=== PATIENT | female | born 1955 | race Two or more races ===

== ENCOUNTER → 2024-10-06 | Outpatient (CLI) | payer OTHER ==
[~2024-10-06] VITALS: Ht 160 cm; Wt 69.9 kg
[2024-10-06] MEDS: REGADENOSON 0.4 MG/5 ML SYRG IV ONE ×2 (09:55→09:57)
--- NOTE | 2024-10-06 11:28 | DVHSR ---
APPROVED REPORT Exam: Nuclear Stress Test BMI: 0 Stress Test Details HR Max Heart Rate (APMHR): 150 bpm Target HR (85% APMHR): 128 bpm BP ECG Stress ECG Conclusion Review of the myocardial perfusion images demonstrated a small area of mild intensity reduced radiotr acer uptake in the distal anterior wall during stress. This appears to be a reversible during rest. Otherwise, there is homogeneous radiotracer uptake throughout the rest of the left ventricular myoca rdium. Left ventricular volumes are normal. Ejection fraction is normal and is estimated at 72%. T here is no significant transient ischemic dilatation. No gated images are available to assess for wa ll motion. Impression: 1. Small area of mildly reduced radiotracer uptake in the distal anterior wall which could be seconda ry to ischemia versus attenuation artifact. 2. Normal left ventricular systolic function. 3. Overall, the study is low risk. NM EXAM: Myocardial Perfusion REST/STRESS Imaging Protocol: Rest Tc-99m/Stress Tc-99m 1 day Resting Data Rest SPECT myocardial perfusion imaging was performed in supine position 60 minutes following the int ravenous injection of 14.7 mCi of Tc-99m Sestamibi. Time of rest injection: 0805 Time of rest imagin Administration Route: IV Administration Site: Left Hand Pharmacologic Stress Pharmacologic stress test was performed by injecting Regadenoson 0.4 mg IV push followed by the intra venous injection of 30.7 mCi of Tc-99m Sestamibi. Time of stress injection: 0955 Time of stress imagin Administration Route: IV Administration Site: Left Hand Gated Stress SPECT was performed 60 minutes after stress injection. The images were gated to evaluate regional wall motion and calculate left ventricular ejection fracti on. Stress only was performed in the Supine position. Nuclear Conclusion ECG Findings: equivocal Clinical Findings: negative for ischemia Nuclear Findings: equivocal Exercise Capacity: not assessed Left Ventricular Function: normal Risk Study: low Review of the myocardial perfusion images demonstrated a small area of mild intensity reduced radiotr acer uptake in the distal anterior wall during stress. This appears to be a reversible during rest. Otherwise, there is homogeneous radiotracer uptake throughout the rest of the left ventricular myoca rdium. Left ventricular volumes are normal. Ejection fraction is normal and is estimated at 72%. T here is no significant transient ischemic dilatation. No gated images are available to assess for wa ll motion. Impression: 1. Small area of mildly reduced radiotracer uptake in the distal anterior wall which could be seconda ry to ischemia versus attenuation artifact. 2. Normal left ventricular systolic function. 3. Overall, the study is low risk.
== END | disposition home or self-care (01) ==
LOC: XYW 07:23
PROVIDERS: ATTEND Specialist
DX: R00.2 Palpitations (principal); R53.83 Other fatigue; R07.9 Chest pain, unspecified; I10 Essential (primary) hypertension; E11.42 Type 2 diabetes mellitus with diabetic polyneuropathy; E78.2 Mixed hyperlipidemia
CPT/HCPCS: 78452; 93017; A9500; J2785

== ENCOUNTER 2025-02-10 17:15 | Inpatient (IN) | payer MEDICAID, OTHER ==
[~2025-02-10] VITALS: Ht 160 cm; Wt 68.3 kg
[2025-02-10 17:35] VITALS: PULSE 66; RESP 16; O2SAT 94
--- NOTE | 2025-02-10 18:40 | ED.PDOC ---
HPI Comments 69 year old female came to ER due to chest pain. Patient has history of hypertension and diabetes. Was experiencing chest pains with palpitations and shortness of breath earlier today so she went to [facility] for check up. Was noted to be on Afib in Rvr, new onset and diagnostics done revealed elevated troponin levels. 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 Allergies: Coded Allergies: NO KNOWN ALLERGIES (Unverified , 10/06/24) Home Meds Reported Medications Omeprazole (Gnp Omeprazole) 20 Mg Tab, 40 MG PO DAILY, TAB 02/11/25 Phenazopyridine HCl (Phenazopyridine Hydrochol) 200 Mg Tab, 1 TAB PO TID 02/11/25 Nitrofurantoin Monohyd Macro (Nitrofurantoin Monohydrat) 100 Mg Cap, 1 CAP PO 02/11/25 Insulin Aspart (Novolog) 100 Unit/Ml Inj, SC 02/11/25 Gabapentin (Gabapentin) 300 Mg Cap, 1 CAP PO TID 02/11/25 Amlodipine Besylate (Amlodipine Besylate) 5 Mg Tab, 1 TAB PO DAILY 02/11/25 Atorvastatin Calcium (ATORVASTATIN CALCIUM) 80 Mg Tab, 1 TAB PO DAILY 02/11/25 Atorvastatin Calcium (ATORVASTATIN CALCIUM) 20 Mg Tab, 1 TAB PO DAILY 02/11/25 Metoprolol Tartrate (Lopressor) 25 Mg Tb, 1 TAB PO BID 02/11/25 Aspirin (Aspirin Low Dose) 81 Mg Chw, 1 TAB PO DAILY 02/11/25 Metformin Hydrochloride (Metformin Hcl) 500 Mg Tab, 1 TAB PO BID 02/11/25 Information Source: Patient Mode of Arrival: EMS Severity: Moderate Timing: Hours Duration: Intermittent Prehospital treatment: 12 Lead EKG, Accucheck Location: Substernal Radiation: No Radiation Quality: Aching Onset: With Light Exertion Cardiac Risk Factors: HTN, Diabetes PE Risk Factors: None Associated Signs and Symptoms: SOB, Palpitations Past Medical History PAST MEDICAL HISTORY: DM, HTN Surgical History: Denies all surgeries 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: 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 all 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 WELDER Hx Family History Family History: Reviewed,noncontributory to illness Social History Smoker: Non-Smoker Alcohol: Denies ETOH Use Drugs: Denies Drug Use Lives In: Home Constitutional: denies: chills, diaphoresis, fatigue, fever, malaise, sweats, weakness, others EENTM: denies: blurred vision, double vision, ear bleeding, ear discharge, ear drainage, ear pain, ear ringing, eye pain, eye redness, hearing loss, mouth pain, mouth swelling, nasal discharge, nose bleeding, nose congestion, nose pain, photophobia, tearing, throat pain, throat swelling, voice changes, others Respiratory: reports: shortness of breath; denies: cough, hemoptysis, orthopnea, SOB at rest, SOB with excertion, stridor, wheezing, others Cardiovascular: reports: chest pain, palpitations; denies: dizzy spells, diaphoresis, Dyspnea on exertion, edema, irregular heart beat, left arm pain, lightheadedness, PND, syncope, others Gastrointestinal: denies: abdomen distended, abdominal pain, blood streaked bowels, constipated, diarrhea, dysphagia, difficulty swallowing, hematemesis, melena, nausea, poor appetite, poor fluid intake, rectal bleeding, rectal pain, vomiting, others Genitourinary: denies: abnormal vagina bleeding, burning, dyspareunia, dysuria, flank pain, frequency, hematuria, incontinence, pain, , vagina discharge, urgency, others Neurological: denies: dizziness, fainting, headache, left sided numbness, left sided weakness, numbness, paresthesia, pre-existing deficit, right sided numbness, right sided weakness, seizure, speech problems, tingling, tremors, weakness, others Musculoskeletal: denies: back pain, gout, joint pain, joint swelling, muscle pain, muscle stiffness, neck pain, others Integumetry: denies: bruises, change in color, change in hair/nails, dryness, laceration, lesions, lumps, rash, wounds, others Allergic/Immunocompromised: denies: Difficulty Healing, Frequent Infections, Hives, Itching, others Hematologic/Lymphatic: denies: anemia, blood clots, easy bleeding, easy bruising, swollen glands, others Endocrine: denies: excessive hunger, excessive sweating, excessive thirst, excessive urination, flushing, intolerance to cold, intolerance to heat, unexplained weight gain, unexplained weight loss, others Psychiatric: denies: anxiety, bipolar disorder, depression, hopeless, panic disorder, schizophrenia, sleepless, suicidal, others Physical Exam General Appearance: No Apparent Distress, Normal HEENT: Normal ENT Inspection, Pharynx Normal, TMs Normal Neck: Full Range of Motion, Non-Tender, Normal, Normal Inspection Respiratory: Chest Non-Tender, Lungs Clear, No Accessory Muscle Use, No Respiratory Distress, Normal Breath Sounds Cardiovascular: No Edema, No JVD, No Murmur, No Gallop, Normal Peripheral Pulses, Regular Rate/Rhythm Breast Exam: Deferred Gastrointestinal: No Organomegaly, Non Tender, No Pulsatile Mass, Normal Bowel Sounds, Soft Genitalia: Deferred Pelvic: Deferred Rectal: Deferred Extremities: No calf tenderness, Normal capillary refill, Normal inspection, Normal range of motion, Non-tender, No pedal edema Musculoskeletal : Apperance: Normal Neurologic: Alert, 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 Was a procedure done?: No CP Differential Dx Differential Diagnosis: A-fib, Angina, Anxiety / Panic Attack Differential Diagnosis: Angina, Chest Wall Pain, Costochondritis, Esophageal reflux/spasm, Gastritis, Myocardial Infarction, Pneumonia X-Ray, Labs, Meds, VS Vital Signs Date Time Temp Pulse Resp B/P (MAP) Pulse Ox O2 Delivery O2 Flow Rate FiO2 02/11/25 01:00 57 12 118/40 (66) 95 02/11/25 01:00 57 13 118/40 (66) 94 02/11/25 00:00 65 02/11/25 00:00 66 13 128/54 (78) 92 02/10/25 23:00 57 12 124/40 (68) 95 02/10/25 23:00 57 12 124/40 (68) 95 02/10/25 22:00 61 15 110/39 (62) 95 02/10/25 21:12 62 17 117/41 (66) 95 02/10/25 21:00 62 17 117/41 (66) 95 02/10/25 20:00 61 16 114/40 (64) 94 02/10/25 19:30 97.9 60 17 92/44 (60) 96 97.9 02/10/25 19:29 64 02/10/25 18:40 65 02/10/25 18:13 66 02/10/25 17:35 97.8 67 18 117/51 (73) 94 97.8 02/10/25 17:35 66 16 94 Room Air* 0 21 02/10/25 17:32 72 16 98 02/10/25 17:22 65 Lab Test 02/10/25 21:32 02/10/25 19:40 02/10/25 18:34 Range/Units Troponin I High Sensitivity 15529 *H 98863 *H 16335 *H </=34 ng/L White Blood Count 8.0 4.4-10.8 10^3/uL Red Blood Count 4.30 4.0-5.20 10^6/uL Hemoglobin 12.5 12.2-16.2 g/dL Hematocrit 37.4 36.0-46.0 % Mean Corpuscular Volume 87.0 80.0-100.0 fL Mean Corpuscular Hemoglobin 29.2 28.0-32.0 pg Mean Corpuscular Hemoglobin Concent 33.5 32.0-36.0 g/dL Red Cell Distribution Width 13.1 11.8-14.3 % Platelet Count 210 140-450 10^3/uL Mean Platelet Volume 9.5 6.9-10.8 fL Neutrophils (%) (Auto) 56.4 37.0-80.0 % Lymphocytes (%) (Auto) 33.5 10.0-50.0 % Monocytes (%) (Auto) 8.0 0.0-12.0 % Eosinophils (%) (Auto) 1.5 0.0-7.0 % Basophils (%) (Auto) 0.6 0.0-2.0 % Neutrophils # (Auto) 4.5 1.6-8.6 10 ^3/uL Lymphocytes # (Auto) 2.7 0.4-5.4 10 ^3/uL Monocytes # (Auto) 0.6 0-1.3 10 ^3/uL Eosinophils # (Auto) 0.1 0-0.8 10 ^3/uL Basophils # (Auto) 0.1 0-0.2 10 ^3/uL Nucleated Red Blood Cells 0.1 % Prothrombin Time 10.7 9.3-11.8 sec Prothrombin Time INR 1.01 0.9-1.15 Activated Partial Thromboplast Time 31.9 24.5-34.5 SEC Sodium Level 143 136-145 mmol/L Potassium Level 4.1 3.5-5.1 mmol/L Chloride Level 111 H 98-107 mmol/L Carbon Dioxide Level 27 20-31 mmol/L Anion Gap 5 5-15 Blood Urea Nitrogen 14 9-23 mg/dL Creatinine 0.86 0.550-1.02 mg/dL Glomerular Filtration Rate Calc 73 >90 mL/min BUN/Creatinine Ratio 16.3 10.0-20.0 Serum Glucose 71 L 74-106 mg/dL Calcium Level 9.6 8.7-10.4 mg/dL B-Type Natriuretic Peptide 101.76 0-100 pg/mL CHEST RADIOGRAPH Indication: chest pain Technique: Single frontal view of the chest was obtained Comparison: None FINDINGS: Lines and Tubes: None Lungs: No focal consolidation. Pleura: No effusion. No pneumothorax. Cardiomediastinal contours: Unremarkable Bones: No acute osseous abnormality. IMPRESSION: 1. No acute cardiopulmonary disease. Time of 1ST Reevaluation: 18:36 Reevaluation 1ST: Unchanged Patient Education/Counseling: Diagnosis, Treatment Family Education/Counseling: No Family Present Departure 1 Departure Time of Disposition: 05:31 (Patient presented with chest pain that was concerning for possible STEMI, ACS, PE, Pneumonia, Muscle Strain, COPD, Dissection. Data: 1. I ordered and reviewed the result of at least 3 labs inc luding a CBC, BMP, and Troponin. 2. I independently interpreted the following tests: EKG which shows sinus arrhythmia and Chest X-ray which shows benign chest.Risk:This patient has a high risk of morbidity due to further diagnostic testing or treatment and may suffer from an acute cardiac or respiratory disorder. Workup reveals concern for ACS and patient should be admitted for fur ther workup and possible expert consultation. ) Impression: Primary Impression: Acute chest pain Disposition: 09 ADMITTED INPATIENT Admit to: Med Surg Condition: Serious Critical Care Note Critical Care Time?: Yes (35 min-critical care time only) Critical care comment: chest pains. [email or web address] Authorized and Performed by: Hamida Cross MD Total critical care time: Approximately 44 minutes Due to a high probability of clinically significant, life threatening deterioration, the patient required my highest level of preparedness to intervene emergently and I personally spent this critical care time directly and personally managing the patient. This critical care time included obtaining a history; examining the patient; pulse oximetry; ordering and review of studies; arranging urgent treatment with development of a management plan; evaluation of patient's response to treatment; frequent reassessment; and, discussions with other providers. This critical care time was performed to assess and manage the high probability of imminent, life-threatening deterioration that could result in multi-organ failure. It was exclusive of separately billable procedures and treating other patients and teaching time. Please see my other sections and the rest of the note for further information on patient assessment and treatment. Stability Stability form required: No Heart Score Heart Score: Heart Score Response (Comments) Value History Moderate Suspicious 1 EKG Normal 0 Age >65 2 Risk Factors >3 or Hx ASHD 2 Troponin >3 x's Normal limit 2 Total 7 I personally scribed for HAMIDA CROSS MD ([employer]) on 02/10/25 at 18:40. Electronically submitted by Humberto Lugo ([employer]). I personally scribed for HAMIDA CROSS MD ([facility]) on 02/10/25 at 19:48. Elect ronically submitted by Humberto Lugo ([employer]). HAMIDA CROSS MD February 10, 2025 18:40
[2025-02-10 18:49] LABS: Basophils # (auto) 0.1 10 ^3/uL (0-0.2); Basophils % (auto) 0.6 % (0.0-2.0); Eosinophils # (auto) 0.1 10 ^3/uL (0-0.8); Eosinophils % (auto) 1.5 % (0.0-7.0); Hematocrit 37.4 % (36.0-46.0); Hemoglobin 12.5 g/dL (12.2-16.2); Lymphocytes # (auto) 2.7 10 ^3/uL (0.4-5.4); Lymphocytes % (auto) 33.5 % (10.0-50.0); Mean Corpuscular Hemoglobin 29.2 pg (28.0-32.0); Mean Corpuscular Hgb Conc. 33.5 g/dL (32.0-36.0); Monocytes # (auto) 0.6 10 ^3/uL (0-1.3); Neutrophils # (auto) 4.5 10 ^3/uL (1.6-8.6); Neutrophils % (auto) 56.4 % (37.0-80.0); Nucleated Red Blood Cells % 0.1 %; Platelet Count (auto) 210 10^3/uL (140-450); Red Cell Distribution Width 13.1 % (11.8-14.3)
--- NOTE | 2025-02-10 18:54 | DVH ---
CHEST RADIOGRAPH Indication: chest pain Technique: Single frontal view of the chest was obtained Comparison: None FINDINGS: Lines and Tubes: None Lungs: No focal consolidation. Pleura: No effusion. No pneumothorax. Cardiomediastinal contours: Unremarkable Bones: No acute osseous abnormality. IMPRESSION: 1. No acute cardiopulmonary disease.
--- NOTE | 2025-02-10 18:59 | ECG ---
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
--- NOTE | 2025-02-10 18:59 | ECG ---
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
[2025-02-10 19:05] LABS: Potassium 4.1 mmol/L (3.5-5.1); Sodium 143 mmol/L (136-145)
[2025-02-10 19:06] LABS: Anion Gap 5 (5-15); Carbon Dioxide 27 mmol/L (20-31)
[2025-02-10 19:07] LABS: Calcium 9.6 mg/dL (8.7-10.4)
[2025-02-10 19:08] LABS: Chloride 111 mmol/L (98-107)
[2025-02-10 19:12] LABS: BUN/Creatinine Ratio 16.3 (10.0-20.0); Blood Urea Nitrogen 14 mg/dL (9-23); Glucose 71 mg/dL (74-106)
[2025-02-10 20:00] VITALS: BP 114/40; PULSE 61; RESP 16; O2SAT 94
[2025-02-10 20:50] LABS: INR 1.01 (0.9-1.15); Partial Thromboplastin Time 31.9 SEC (24.5-34.5); Prothrombin Time 10.7 sec (9.3-11.8)
[2025-02-10] MEDS: HEPARIN SODIUM (PORCINE) 5000 UNITS/ML 1ML VIAL IV ONE (20:50)
[2025-02-10 21:00] VITALS: BP 117/41; PULSE 62; RESP 17; O2SAT 95
[2025-02-10] MEDS: HEPARIN DRIP/D5W 100UNITS/ML 250 ML IV SCH (21:13)
[2025-02-10 22:00] VITALS: BP 110/39; PULSE 61; RESP 15; O2SAT 95
[2025-02-10 23:00] VITALS: BP 124/40; PULSE 57; RESP 12; O2SAT 95
[2025-02-11] VITALS (13 sets, daily range): BP systolic 118–145; BP diastolic 40–76; PULSE 55–81; RESP 12–18; TEMP 96.9–98.4; O2SAT 92–98
[2025-02-11] MEDS ORDERED: HYDROcodone-ACET 5/325MG TAB PO PRN (01:15)
[2025-02-11] MEDS ORDERED: ONDANSETRON HCL 4 MG/2 ML VIAL IV PRN (01:15)
[2025-02-11] MEDS ORDERED: MORPHINE SULFATE INJ 2 MG/ml SYRG IV PRN ×2 (01:15)
[2025-02-11] MEDS ORDERED: ACETAMINOPHEN 325 MG TAB PO PRN (01:15)
[2025-02-11] MEDS ORDERED: DOCUSATE SOD 100 MG CAP PO PRN (01:15)
[2025-02-11] MEDS ORDERED: NITROGLYCERIN 0.4 MG SL TAB SL PRN (01:15)
[2025-02-11 03:23] LABS: INR 0.99 (0.9-1.15); Partial Thromboplastin Time 30.5 SEC (24.5-34.5); Prothrombin Time 10.5 sec (9.3-11.8)
[2025-02-11] MEDS: HEPARIN SODIUM (PORCINE) 5000 UNITS/ML 1ML VIAL IV ONE ×2 (03:45→13:48)
[2025-02-11] MEDS ORDERED: HEPARIN DRIP/D5W 100UNITS/ML 250 ML IV SCH (03:45)
[2025-02-11] MEDS: HEPARIN DRIP/D5W 100UNITS/ML 250 ML IV SCH ×2 (04:18→20:50)
--- NOTE | 2025-02-11 05:56 | DVHINCON2 ---
Date of service: Feb 11, 2025 Referring Physician Bisi Mcpherson NP Reason for Consultation NSTEMI History of Present Illness This is a 69-year old female known outside to our practice who had initially presented to [facility] 02/10/2025 with reported chest discomfort (now resolved), shortness of breath, and palpitations. ED events from [facility] were reviewed which records indicate initial 12-lead electrocardiogram had revealed atrial fibrillation with a ventricular rate of 145 bpm, with evidence for ST depression predominately involving the septal, anterior, and lateral leads without evidence for ST segment elevation which patient was reportedly administered one dose of IV Lopressor resulting and had later converted to sinus rhythm. Initial troponin at that time had been found normal at 0.02 however repeat level had risen to 2.44 for which patient was subsequently initiated on therapeutic Lovenox and transferred to this facility for further evaluation to undergo ischemic workup. During present course of admi ssion, serial EKG's have been found consistent with sinus rhythm with no further evidence for previously observed ST depression, nor evidence for ST segment elevation. Initial HS troponin level was found elevated at 15,359, with a subsequent trend of 16,904, which had peaked at 17,105 with a downtrend of 8207 consistent with NSTEMI for which the patient had been initiated on Heparin infusion. Subsequent CTA of the Chest had ruled out pulmonary embolism, aneurysm, and dissection. BNP level was found to be 101.76 which chest imaging had revealed no evidence for acute cardiopulmonary abnormalities. LDL was found sub-optimal at 130. Of note, previous Cardiolite Stress Test ([facility] 10/06/2024) had revealed a small area of mildly reduced radiotracer uptake in the distal anterior wall questioned to be ischemia versus attenuation, overall reported to be a low-risk study which subsequent CTA of the Coronaries had been requested for further evaluation however had not been completed by the patient. Echocardiogram (out-patient 11/07/2024) had revealed a preserved LVEF of 60-65%. At present, patient herself denies any active chest pain. Denies any further shortness of breath or palpitations. Denies any further cardiac related symptoms. As the patient presented with NSTEMI, Cardiology services were involved by primary team request for cardiac aspects of care. Past Medical History Past medical history includes diabetes mellitus II, hypertension, hyperlipidemia, neuropathy, status post hysterectomy and bilateral oophorectomy Cardiolite Stress Test: (10/06/2024) revealed Small area of mildly reduced radiotracer uptake in the distal anterior wall which could be secondary to ischemia versus attenuation artifact. Normal left ventricular systolic function. Overall, the study is low risk. Echocardiogram: (Out-patient 11/07/2024) revealed a preserved LVEF of 60-65%, mild concentric LVH, mild left atrial dilation, mild MR, thickened MV with nodular degeneration, mild MAC, trace/mild FL, mild AR, mildly thickened AV, mild TR, with an RVSP of < 35mmHg Past Surgical History Reviewed Family History: Diabetes mellitus G8 MOTHER Hypertension G8 MOTHER Allergies: Coded Allergies: NO KNOWN ALLERGIES (Unverified , 10/06/24) Current Medications Current Medications Medications (Trade) Dose Ordered Sig/Mary Route PRN Reason Start Time Stop Time Status Last Admin Heparin Sodium/ Dextrose 250 ml @ 8.328 mls/ hr Q24H IV 02/10/25 20:30 02/11/25 03:44 DC 02/10/25 21:13 Acetaminophen (Tylenol Tablet) 325 mg Q4HP PRN PO MILD PAIN (1-3 PAIN SCALE) 02/11/25 01:15 Acetaminophen/ Hydrocodone Bitart ([place] 5/325MG Tab) 1 tab Q4HP PRN PO MODERATE PAIN (4-6 PAIN SCALE) 02/11/25 01:15 Ondansetron HCl (Zofran) 4 mg Q4HP PRN IV NAUSEA / VOMITING 02/11/25 01:15 Docusate Sodium (Colace Capsule) 100 mg BIDPRN PRN PO FOR CONSTIPATION 02/11/25 01:15 Morphine Sulfate 2 mg Q4HPRN PRN IV SEVERE PAIN (7-10 PAIN SCALE) 02/11/25 01:15 Nitroglycerin (Ntrostat Sublingual) 0.4 mg Q5MINP PRN SL FOR CHEST PAIN 02/11/25 01:15 Morphine Sulfate 2 mg Q30M PRN IV FOR CHEST PAIN 02/11/25 01:15 Heparin Sodium/ Dextrose 250 ml @ 11 mls/hr [id number] IV 02/11/25 03:45 02/11/25 04:12 DC Heparin Sodium/ Dextrose 250 ml @ 15 mls/hr [id number] IV 02/11/25 04:15 02/11/25 04:18 Review of Systems A 14-point review of systems is negative unless otherwise noted above Vital Signs Vital Signs Date Time Temp Pulse Resp B/P (MAP) Pulse Ox O2 Delivery O2 Flow Rate FiO2 02/11/25 05:00 96.9 60 16 126/64 (84) 98 96.9 02/11/25 04:34 Room Air* 0 21 Physical Exam Heart: S1 and S2 regular. The patient is in sinus rhythm. Lungs: Clear to auscultation Abdomen: Benign. Extremities: Distal pulses palpable, 2+. No evidence for peripheral edema Labs/Diagnostic Data Labs Test 02/11/25 02:58 02/10/25 21:32 02/10/25 18:34 Range/Units Prothrombin Time 10.5 9.3-11.8 sec Prothrombin Time INR 0.99 0.9-1.15 Activated Partial Thromboplast Time 30.5 24.5-34.5 SEC Troponin I High Sensitivity 43673 *H </=34 ng/L White Blood Count 8.0 4.4-10.8 10^3/uL Red Blood Count 4.30 4.0-5.20 10^6/uL Hemoglobin 12.5 12.2-16.2 g/dL Hematocrit 37.4 36.0-46.0 % Mean Corpuscular Volume 87.0 80.0-100.0 fL Mean Corpuscular Hemoglobin 29.2 28.0-32.0 pg Mean Corpuscular Hemoglobin Concent 33.5 32.0-36.0 g/dL Red Cell Distribution Width 13.1 11.8-14.3 % Platelet Count 210 140-450 10^3/uL Mean Platelet Volume 9.5 6.9-10.8 fL Neutrophils (%) (Auto) 56.4 37.0-80.0 % Lymphocytes (%) (Auto) 33.5 10.0-50.0 % Monocytes (%) (Auto) 8.0 0.0-12.0 % Eosinophils (%) (Auto) 1.5 0.0-7.0 % Basophils (%) (Auto) 0.6 0.0-2.0 % Neutrophils # (Auto) 4.5 1.6-8.6 10 ^3/uL Lymphocytes # (Auto) 2.7 0.4-5.4 10 ^3/uL Monocytes # (Auto) 0.6 0-1.3 10 ^3/uL Eosinophils # (Auto) 0.1 0-0.8 10 ^3/uL Basophils # (Auto) 0.1 0-0.2 10 ^3/uL Nucleated Red Blood Cells 0.1 % Sodium Level 143 136-145 mmol/L Potassium Level 4.1 3.5-5.1 mmol/L Chloride Level 111 H 98-107 mmol/L Carbon Dioxide Level 27 20-31 mmol/L Anion Gap 5 5-15 Blood Urea Nitrogen 14 9-23 mg/dL Creatinine 0.86 0.550-1.02 mg/dL Glomerular Filtration Rate Calc 73 >90 mL/min BUN/Creatinine Ratio 16.3 10.0-20.0 Serum Glucose 71 L 74-106 mg/dL Calcium Level 9.6 8.7-10.4 mg/dL B-Type Natriuretic Peptide 101.76 0-100 pg/mL Plan/Recommendation ASSESSMENT: This is a 69-year old female known outside to our practice who had initially presented to [facility] 02/10/2025 with reported chest discomfort (now resolved), shortness of breath, and palpitations. ED events from [facility] were reviewed which records indicate initial 12-lead el ectrocardiogram had revealed atrial fibrillation with a ventricular rate of 145 bpm, with evidence for ST depression predominately involving the septal, anterior, and lateral leads without evidence for ST segment elevation which patient was reportedly administered one dose of IV Lopressor resulting and had later converted to sinus rhythm. Initial troponin at that time had been found normal at 0.02 however repeat level had risen to 2.44 for which patient was subsequently initiated on therapeutic Lovenox and transferred to this facility for further evaluation to undergo ischemic workup. During present course of admission, serial EKG's have been found consistent with sinus rhythm with no further evidence for previously observed ST depression, nor evidence for ST segment elevation. Initial HS troponin level was found elevated at 15,359, with a subsequent trend of 16,904, which had peaked at 17,105 with a downtrend of 8207 consistent with NSTEMI for which the patient had been initiated on Heparin infusion. Subsequent CTA of the Chest had ruled out pulmonary embolism, aneurysm, and dissection. BNP level was found to be 101.76 which chest imaging had revealed no evidence for acute cardiopulmonary abnormalities. LDL was found sub-optimal at 130. Of note, previous Cardiolite Stress Test ([facility] 10/06/2024) had revealed a small area of mildly reduced radiotracer uptake in the distal anterior wall questioned to be ischemia versus attenuation, overall reported to be a low-risk study which subsequent CTA of the Coronaries had been requested for further evaluation however had not been completed by the patient. Echocardiogram (out-patient 11/07/2024) had revealed a preserved LVEF of 60-65%. At present, patient herself denies any active chest pain. Denies any further shortness of breath or palpitations. Denies any further cardiac related symptoms. As the patient presented with NSTEMI, Cardiology services were involved by primary team request for cardiac aspects of care. Past medical history includes diabetes mellitus II, hypertension, hyperlipidemia, neuropathy, status post hysterectomy and bilateral oophorectomy Cardiolite Stress Test: (10/06/2024) revealed Small area of mildly reduced radiotracer uptake in the distal anterior wall which could be secondary to ischemia versus attenuation artifact. Normal left ventricular systolic function. Overall, the study is low risk. Echocardiogram: (out-patient 11/07/2024) revealed a preserved LVEF of 60-65%, mild concentric LVH, mild left atrial dilation, mild MR, thickened MV with nodular degeneration, mild MAC, trace/mild FL, mild AR, mildly thickened AV, mild TR, with an RVSP of < 35mmHg NSTEMI (HS Troponins 15,359 - 16,904 - 17,105 - 8207), rule out obstructive coronary artery disease Paroxysmal atrial fibrillation (new onset), currently sinus rhythm Coronary artery calcification as per CTA Chest findings Mediastinal lymphadenopathy 1.4 cm left thyroid nodule Hyperlipidemia, LDL of 130 Hypertension, controlled Diabetes mellitus II CARDIAC SUGGESTIONS FOR MANAGEMENT: Request for 2D Echocardiogram Request for thyroid function test Plan for tentative [facility] Wednesday02/12/25 at 0800 to assess for obstructive coronary artery disease Benefits, risks, and alternatives were discussed at length which the patient is agreeable to the plan of care Recognizing co-morbidities, CHADSVASc score 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 in the setting of PAF is advised To proceed with Heparin infusion for now, plan to transition to DOAC upon discharge for continued anticoagulation To proceed with optimized medical therapy and risk factor modification during the interim Low-dose Metoprolol Succinate 12.5mg daily with parameters (for now) Low-dose Amiodarone 200mg qhs with parameters (for now) Atorvastatin 40mg once daily Aspirin 81mg daily (for now) Proceed with close rate and rhythm surveillance Proceed with close hemodynamic surveillance Proceed with optimized blood pressure control Transfuse to sustain HGB level above 7.0 Sustain Magnesium level greater than 2.0 Sustain Potassium level greater than 4.0 Follow up renal function and electrolytes Evaluation/management of mediastinal lymphadenopathy as per primary team Evaluation/management of 1.4cm left thyroid nodule as per primary team Management of co-morbidities as per primary team Management in telemetry Will proceed to follow from a cardiac perspective Further recommendations per clinical progression All available diagnostic labs, EKG's, and images were personally reviewed Patient's status, findings, and plan of care was reviewed and discussed with supervising physician Dr. Jones, who is in agreement with current plan of care. Plan of care discussed with and agreed upon by patient / primary RN Prognosis: Guarded Thank you for allowing me to participate in the care of this patient. Further recommendations based on patients clinical course and progression, primary attending, and other consultants. Will continue to follow with primary attending. If you have any questions or concerns, please do not hesitate to contact me. A total of 75 minutes was spent reviewing the patient record, examining the patient, making a diagnostic and therapeutic plan, discussing this plan with medical personnel, following up on diagnostic studies and following the patient for clinical stability excluding any and all procedures. At least 50% of this time was spent in direct, [id number] contact. Plan discussed with: Patient (Patient and Primary RN ) MAGED GERMAIN Feb 11, 2025 05:56
[2025-02-11 06:18] LABS: Triglycerides 119 mg/dL (< 150)
[2025-02-11 06:20] LABS: Cholesterol 206 mg/dL (< 200); HDL Cholesterol 59 mg/dL (40-59); LDL Cholesterol 130 mg/dL (< 100)
--- NOTE | 2025-02-11 06:46 | ECG ---
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
[2025-02-11] MEDS: IOHEXOL 350 MG/ML 100ML IJ ONE (08:20)
--- NOTE | 2025-02-11 08:58 | [facility]H ---
Indication: r/o pe Technique: CT axial images of the chest are obtained with intravenous contrast per CT angiogram prot ocol. Coronal and sagittal reformats were obtained. Radiation Dose Information: CTDI volume is 38.48 mGy. Dose-length product is 699.34 mGy*cm Comparison: None FINDINGS: No filling defects in the main left right pulmonary arteries. Segmental and subsegmental branches sub optimally characterized, no definitive defect identified. Trachea patent. No pneumothorax. Bilateral atelectasis. No pulmonary airspace consolidation. Heart normal in size. Coronary artery calcification disease. Aortic atherosclerotic disease. Subcari nal lymph node measuring 13 mm. Pretracheal lymph node measuring 6 mm. No supraclavicular, axillary lymphadenopathy. Left thyroid nodule measuring 1.4 cm. Thyroid calcific ations. IMPRESSION: 1. No evidence for large pulmonary embolism. 2. Mediastinal lymphadenopathy which can be secondary to infectious, inflammatory, neoplastic etiolog ies. 3. Coronary artery calcification disease. 4. There is a 1.4 cm left thyroid nodule. Recommend thyroid ultrasound in the nonemergent setting fo r further characterization. 5. Other findings as described.
[2025-02-11] MEDS: ASPirin 81 mg TAB PO SCH (10:00)
[2025-02-11 10:22] LABS: INR 0.99 (0.9-1.15); Partial Thromboplastin Time 28.9 SEC (24.5-34.5); Prothrombin Time 10.5 sec (9.3-11.8)
--- NOTE | 2025-02-11 13:40 | CONS ---
Pharmacy Clinical Information: aPTT drawn at 1001 = 28.9 RN checked pump and found previous RN had set pump at 15 units/hr instead of 1500 units/hr = 15 mL/hr Ordered 5000 units IV bolus; RN adjusted pump to 1500 units/hr Next aPTT draw scheduled for 1900 per rx protocol FAY HINOJOSA PHARMACIST Feb 11, 2025 13:40
--- NOTE | 2025-02-11 14:33 | DVHHP2 ---
Admitting Diagnosis: Chest Pain History of Present Illness Patient is a 69-year-old female coming in for chest pain. Patient states that she was experiencing chest pain and palpitations and shortness of breath earlier today. Patient was found to have A-fib with RVR in the emergency department at [facility]. Patient states that she does have a history of hypertension and diabetes. While in the emergency department the patient was evaluated by the provider, As per provider: Labs, vital signs, and imagining monitored. Patient will be admitted for further evaluation and treatment. I discussed admission with the patient/family and is in agreement to treatment plan Patient Family History: Diabetes mellitus G8 MOTHER Hypertension G8 MOTHER Allergies: Coded Allergies: NO KNOWN ALLERGIES (Unverified , 10/06/24) Home Meds Reported Medications Omeprazole (Gnp Omeprazole) 20 Mg Tab, 40 MG PO DAILY, TAB 02/11/25 Phenazopyridine HCl (Phenazopyridine Hydrochol) 200 Mg Tab, 1 TAB PO TID 02/11/25 Nitrofurantoin Monohyd Macro (Nitrofurantoin Monohydrat) 100 Mg Cap, 1 CAP PO 02/11/25 Insulin Aspart (Novolog) 100 Unit/Ml Inj, SC 02/11/25 Gabapentin (Gabapentin) 300 Mg Cap, 1 CAP PO TID 02/11/25 Amlodipine Besylate (Amlodipine Besylate) 5 Mg Tab, 1 TAB PO DAILY 02/11/25 Atorvastatin Calcium (ATORVASTATIN CALCIUM) 80 Mg Tab, 1 TAB PO DAILY 02/11/25 Atorvastatin Calcium (ATORVASTATIN CALCIUM) 20 Mg Tab, 1 TAB PO DAILY 02/11/25 Metoprolol Tartrate (Lopressor) 25 Mg Tb, 1 TAB PO BID 02/11/25 Aspirin (Aspirin Low Dose) 81 Mg Chw, 1 TAB PO DAILY 02/11/25 Metformin Hydrochloride (Metformin Hcl) 500 Mg Tab, 1 TAB PO BID 02/11/25 Current Medications Current Medications Medications (Trade) Dose Ordered Sig/Mary Route PRN Reason Start Time Stop Time Status Last Admin Heparin Sodium/ Dextrose 250 ml @ 8.328 mls/ hr Q24H IV 02/10/25 20:30 02/11/25 03:44 DC 02/10/25 21:13 Acetaminophen (Tylenol Tablet) 325 mg Q4HP PRN PO MILD PAIN (1-3 PAIN SCALE) 02/11/25 01:15 Acetaminophen/ Hydrocodone Bitart ([place] 5/325MG Tab) 1 tab Q4HP PRN PO MODERATE PAIN (4-6 PAIN SCALE) 02/11/25 01:15 Ondansetron HCl (Zofran) 4 mg Q4HP PRN IV NAUSEA / VOMITING 02/11/25 01:15 Docusate Sodium (Colace Capsule) 100 mg BIDPRN PRN PO FOR CONSTIPATION 02/11/25 01:15 Morphine Sulfate 2 mg Q4HPRN PRN IV SEVERE PAIN (7-10 PAIN SCALE) 02/11/25 01:15 Cancel Nitroglycerin (Ntrostat Sublingual) 0.4 mg Q5MINP PRN SL FOR CHEST PAIN 02/11/25 01:15 Morphine Sulfate 2 mg Q30M PRN IV FOR CHEST PAIN 02/11/25 01:15 Cancel Heparin Sodium/ Dextrose 250 ml @ 11 mls/hr [id number] IV 02/11/25 03:45 02/11/25 04:12 DC Heparin Sodium/ Dextrose 250 ml @ 15 mls/hr [id number] IV 02/11/25 04:15 02/11/25 13:51 Atorvastatin Calcium (Lipitor) 40 mg HS PO 02/11/25 22:00 Aspirin 81 mg DAILY PO 02/11/25 10:00 02/11/25 10:00 Amiodarone HCl (Cordarone Tablet) 200 mg HS PO 02/11/25 22:00 Metoprolol Succinate (Toprol Xl) 12.5 mg DAILY PO 02/12/25 10:00 Pantoprazole Sodium (Protonix Tablet) 40 mg DAILY@0600 PO 02/12/25 06:00 Morphine Sulfate 2 mg Q4HPRN PRN IV SEVERE PAIN (7-10 PAIN SCALE) 02/11/25 14:45 Morphine Sulfate 2 mg Q30M PRN IV for chest pain 02/11/25 14:45 Review of Systems Constitutional: denies chills, denies fever, denies malaise Eyes: denies eye pain, denies vision change ENT: denies ear pain, denies headache, denies nasal congestion, denies painful swallowing, denies voice change Cardiovascular: denies edema, denies orthopnea, denies paroxysmal nocturnal dyspnea Respiratory: denies cough, Gastrointestinal: denies constipation, denies diarrhea, denies nausea, denies vomiting Genitourinary: denies dysuria, denies frequent urination, denies urethral discharge Musculoskeletal: back pain, denies joint pain, denies muscle pain Skin: denies bruising, denies itching, denies rash Neurological: denies focal weakness, denies headache, denies sensory changes Psychiatric: denies anxiety, denies depression Endocrine: denies polydipsia, denies polyuria Hematologic/Lymphatic: denies easy bleeding, denies easy bruising, denies enlarged lymph nodes Allergic/Immunologic: denies allergy, denies hives Vital Signs Vital Signs Date Time Temp Pulse Resp B/P (MAP) Pulse Ox O2 Delivery O2 Flow Rate FiO2 02/11/25 17:00 98.1 81 16 145/76 (99) 98 98.1 02/11/25 04:34 Room Air* 0 21 Physical Exam General Appearance: alert, no distress HEENT: EOMI, PERRLA, normal external inspect of ears, no icterus, no nasal drainage Neck: no carotid bruit, no jugular venous distention (JVD), no lymphadenopathy Chest: normal thorax Respiratory: clear to auscultation, normal air movement Cardiovascular: regular rate and rhythm, no diastolic murmur, no jugular venous distention (JVD), no rub, no systolic murmur Abdominal: soft, no hepatomegaly, no mass, no splenomegaly, no tenderness Genitourinary: grossly normal external Musculoskeletal: no joint tenderness, no swelling Extremities: normal pulses, no calf tenderness, no clubbing, no cyanosis, no edema Skin: no bruising, no jaundice, no rash Neurological: alert, No focal deficit Results Labs Test 02/11/25 19:01 02/11/25 12:38 02/11/25 12:36 02/11/25 02:58 Range/Units Magnesium Level 1.9 1.6-2.6 mg/dL Troponin I High Sensitivity 8207 *H </=34 ng/L Thyroid Stimulating Hormone (TSH) 1.79 0.55-4.78 uIU/mL Triglycerides Level 119 < 150 mg/dL Cholesterol Level 206 H < 200 mg/dL LDL Cholesterol 130 H < 100 mg/dL HDL Cholesterol 59 40-59 mg/dL Test 02/10/25 18:34 Range/Units White Blood Count 8.0 4.4-10.8 10^3/uL Red Blood Count 4.30 4.0-5.20 10^6/uL Hemoglobin 12.5 12.2-16.2 g/dL Hematocrit 37.4 36.0-46.0 % Mean Corpuscular Volume 87.0 80.0-100.0 fL Mean Corpuscular Hemoglobin 29.2 28.0-32.0 pg Mean Corpuscular Hemoglobin Concent 33.5 32.0-36.0 g/dL Red Cell Distribution Width 13.1 11.8-14.3 % Platelet Count 210 140-450 10^3/uL Mean Platelet Volume 9.5 6.9-10.8 fL Neutrophils (%) (Auto) 56.4 37.0-80.0 % Lymphocytes (%) (Auto) 33.5 10.0-50.0 % Monocytes (%) (Auto) 8.0 0.0-12.0 % Eosinophils (%) (Auto) 1.5 0.0-7.0 % Basophils (%) (Auto) 0.6 0.0-2.0 % Neutrophils # (Auto) 4.5 1.6-8.6 10 ^3/uL Lymphocytes # (Auto) 2.7 0.4-5.4 10 ^3/uL Monocytes # (Auto) 0.6 0-1.3 10 ^3/uL Eosinophils # (Auto) 0.1 0-0.8 10 ^3/uL Basophils # (Auto) 0.1 0-0.2 10 ^3/uL Nucleated Red Blood Cells 0.1 % Sodium Level 143 136-145 mmol/L Potassium Level 4.1 3.5-5.1 mmol/L Chloride Level 111 H 98-107 mmol/L Carbon Dioxide Level 27 20-31 mmol/L Anion Gap 5 5-15 Blood Urea Nitrogen 14 9-23 mg/dL Creatinine 0.86 0.550-1.02 mg/dL Glomerular Filtration Rate Calc 73 >90 mL/min BUN/Creatinine Ratio 16.3 10.0-20.0 Serum Glucose 71 L 74-106 mg/dL Calcium Level 9.6 8.7-10.4 mg/dL B-Type Natriuretic Peptide 101.76 0-100 pg/mL Admitting Diagnosis: 1. NSTEMI Heparin, cardiology consult, plan for angiogram 2. HLD Echocardiogram, lipid panel 3. Mediastinal lymphadenopathy Pulmonary consult, monitoring 4. Thyroid nodule Thyroid ultrasound Plan discussed with: Patient, Other MARISOL LEMON NP Feb 11, 2025 14:33
[2025-02-11] MEDS ORDERED: MORPHINE SULFATE 4 MG/ML SYR/VIAL IV PRN ×2 (14:45)
--- NOTE | 2025-02-11 15:23 | DVH ---
ULTRASOUND SOFT TISSUE HEAD AND NECK CLINICAL INDICATION: thyroid nodule TECHNIQUE: Multiple real time sonographic images of the thyroid were obtained. FINDINGS: The right thyroid gland measures 4 cm. The left thyroid gland measures approximately 4 cm. The isthmus measures 0.3 cm. Bilateral TI-RADS 4 nodules measuring 1 cm in the right lower thyroid lobe and 1.2 cm in the left upp er thyroid lobe. Follow-up in 1 year. IMPRESSION: Bilateral TI-RADS 4 nodules measuring 1 cm in the right lower thyroid lobe and 1.2 cm in the left upp er thyroid lobe. Follow-up in 1 year. [employer] TI-RADS Categories and Recommendations (2017): TR1: 0 points, Benign, No FNA TR2: 2 points, Not suspicious, No FNA TR3: 3 points, Mildly suspicious, FNA if > or = 2.5 cm, Follow if > or = 1.5 cm TR4: 4-6 points, Moderately Suspicious, FNA if > or = 1.5 cm, Follow if > or = 1.0 cm TR5: 7+ points, Highly Suspicious, FNA if > or = 1.0 cm, Follow if > or = 0.5 cm Follow-up ultrasound guidelines: TR5: yearly for 5 years, if no growth or change in TI-RADS level TR4: at 1, 2, 3 and 5 years, if no growth or change in TI-RADS level TR3: at 1, 3 and 5 years, if no growth or change in TI-RADS level If increased but below threshold for FNA, repeat in one year. Source: ACR Thyroid Imaging, Reporting and Data System (TI-RADS): White Paper of the ACR TI-RADS Committee. Valarie et al., J Am John Radiol 2017;14:587-595.
[2025-02-11] MEDS ORDERED: NITR100C6 PO (16:46)
[2025-02-11] MEDS ORDERED: ASPI81CH59 PO (16:46)
[2025-02-11] MEDS ORDERED: ATOR20TA50 PO (16:46)
[2025-02-11] MEDS ORDERED: INSU100I28 SC (16:46)
[2025-02-11] MEDS ORDERED: MET25T PO (16:46)
[2025-02-11] MEDS ORDERED: GABA-1250 PO (16:46)
[2025-02-11] MEDS ORDERED: METF-370 PO (16:46)
[2025-02-11] MEDS ORDERED: AMLO1TAB22 PO (16:46)
[2025-02-11] MEDS ORDERED: PHEN-1045 PO (16:46)
[2025-02-11] MEDS ORDERED: ATOR-47 PO (16:46)
[2025-02-11] MEDS ORDERED: OMEP20TA PO (16:47)
[2025-02-11 19:39] LABS: INR 1.03 (0.9-1.15); Prothrombin Time 10.9 sec (9.3-11.8)
[2025-02-11 19:43] LABS: Partial Thromboplastin Time > 139.0 SEC (24.5-34.5)
[2025-02-11] MEDS: ATORVASTATIN 20 MG TAB PO SCH (20:56)
[2025-02-11] MEDS: AMIODARONE HCL 200 MG TAB PO SCH (20:56)
[2025-02-12] VITALS (12 sets, daily range): BP systolic 132–176; BP diastolic 54–88; PULSE 70–90; RESP 13–18; TEMP 96.7–98.1; O2SAT 94–100
[2025-02-12 03:11] LABS: Basophils # (auto) 0.1 10 ^3/uL (0-0.2); Basophils % (auto) 1.1 % (0.0-2.0); Eosinophils # (auto) 0.1 10 ^3/uL (0-0.8); Eosinophils % (auto) 1.2 % (0.0-7.0); Hematocrit 38.8 % (36.0-46.0); Hemoglobin 13.3 g/dL (12.2-16.2); Lymphocytes # (auto) 2.5 10 ^3/uL (0.4-5.4); Lymphocytes % (auto) 30.1 % (10.0-50.0); Mean Corpuscular Hemoglobin 29.7 pg (28.0-32.0); Mean Corpuscular Hgb Conc. 34.4 g/dL (32.0-36.0); Mean Corpuscular Volume 86.4 fL (80.0-100.0); Monocytes # (auto) 0.8 10 ^3/uL (0-1.3); Neutrophils # (auto) 4.9 10 ^3/uL (1.6-8.6); Neutrophils % (auto) 58.6 % (37.0-80.0); Nucleated Red Blood Cells % 0.1 %; Platelet Count (auto) 212 10^3/uL (140-450); Red Blood Cells 4.48 10^6/uL (4.0-5.20); Red Cell Distribution Width 13.2 % (11.8-14.3); White Blood Cell 8.4 10^3/uL (4.4-10.8)
[2025-02-12 03:25] LABS: Alanine Aminotransferase 28 U/L (7-40); Albumin 4.6 g/dL (3.2-4.8); Alkaline Phosphatase 103 U/L (46-116); Anion Gap 8 (5-15); BUN/Creatinine Ratio 16.5 (10.0-20.0); Bilirubin, Total 0.8 mg/dL (0.2-1.0); Blood Urea Nitrogen 16 mg/dL (9-23); Calcium 9.5 mg/dL (8.7-10.4); Carbon Dioxide 27 mmol/L (20-31); Chloride 102 mmol/L (98-107); Magnesium 1.9 mg/dL (1.6-2.6); Potassium 4.2 mmol/L (3.5-5.1); Sodium 137 mmol/L (136-145); Total Protein 7.5 g/dL (5.7-8.2)
[2025-02-12 03:35] LABS: Aspartate Aminotransferase 54 U/L (13-40); Glucose 321 mg/dL (74-106)
[2025-02-12 03:42] LABS: INR 1.06 (0.9-1.15); Prothrombin Time 11.2 sec (9.3-11.8)
[2025-02-12 03:46] LABS: Partial Thromboplastin Time > 139.0 SEC (24.5-34.5)
[2025-02-12] MEDS: HEPARIN DRIP/D5W 100UNITS/ML 250 ML IV SCH (05:08)
[2025-02-12] MEDS: PANTOPRAZOLE 40 MG TAB PO SCH (05:24)
--- NOTE | 2025-02-12 07:49 | DVHSR ---
APPROVED REPORT EXAM: Two-dimensional and M-mode echocardiogram with Doppler and color Doppler. Blood Pressure: 126/64 mmHg INDICATION NSTEMI RISK FACTORS Height: 5'3", Weight: 160 DIMENSIONS LVDd3.6 (3.8-5.7cm)LA (2D)3.8 (1.9-4.0cm)Aortic Root3.0 (2.0-3.7cm) LVDs2.3 (2.5-4.0cm)LA (MM) (1.9-4.0cm)Aortic Cusp Exc1.4 (1.5-2.0cm) EF (%) 60.0 (55-70%)Rt. Atrium4.1 (1.9-4.0cm)Asc. Aorta cm IVSd1.0 (0.7-1.1cm)RV (D)4.1 (1.8-2.4cm) PWd0.7 (0.7-1.1cm) Mitral Valve MitralMitral Stenosis E wave0.83m/sMV Mean GR.mmHg A wave1.25m/sMV Peak GR.mmHg E/A ratio0.72D MVAcm2 DECEL [id number] 1/2 Timems Aortic Valve Aortic ValveAortic Stenosis V11.03m/Hakan Mean GR.5mmHg V21.56m/Hakan Peak GR.10mmHg LVOT Diameter1.8 (1.8-2.4cm)Doppler AVA1.68cm2 Pulmonic Valve V20.99m/s Tricuspid Valve TR Velocity2.74m/s [id number] Other Information Technically limited study due to body habitus. Conclusion Left ventricle: Concentric left ventricle hypertrophy was seen. LVEF was around 55%. There was no gross wall motion abnormality. Abnormal relaxation of left ventricular diastolic function was observ ed. Right ventricle was mildly dilated with preserved systolic function. Both atria were mildly dilated. Aortic valve: Aortic valve was trileaflet. There was mild aortic insufficiency. There was mild kathie ral/tricuspid regurgitation. Pulmonary valve was not well visualized. Right ventricular systolic pressure was assessed at 33 mm Hg. There was no pericardial effusion.
[2025-02-12] MEDS: IODIXANOL 320MG/ML 100ML BTL IV ONE ×2 (08:36→09:37)
[2025-02-12] MEDS: VERAPAMIL 2.5MG/ML INJ 2ML VIAL IV ONE (08:43)
[2025-02-12] MEDS: ANGIOMAX 250 MG VIAL IV ONE (08:43)
[2025-02-12] MEDS: fentaNYL CITRATE 100 MCG/2 ML VL ONE (08:43)
[2025-02-12] MEDS: SODIUM CHL 0.9% 0 ML ONE (08:44)
[2025-02-12] MEDS: MIDAZOLAM HCL 2MG/2ML 2ml VIAL (1mg/ml) ONE (08:44)
[2025-02-12] MEDS: LIDOCAINE 2%HCL (LOCAL ANESTH.) INJ 20ML MDV ONE (08:44)
[2025-02-12] MEDS: HEPARIN SODIUM (PORCINE) 5000 UNITS/ML 1ML VIAL ONE (09:30)
--- NOTE | 2025-02-12 10:29 | DVHOP2 ---
Operative Report Procedures performed: Left heart catheterization and bilateral coronary angiogram Moderate sedation Diagnosis: Multivessel coronary artery disease, including distal left main, ostial LCX, proximal LAD, ostial PDA LVEF of 65% Cardiac suggestion for management: Transfer to higher level of care for bypass surgery Heparin drip Continue aspirin Findings: LVEF: 65% LVEDP: 5 mm Hg Left main: Left main was coming off the left sinus of Valsalva. Distal left m ain had 85% lesion. LAD: LAD was coming off the left main. Proximal LAD had 95% diffuse disease. Mid to distal LAD had mild disease. [id number] sized diagonal had 80% lesion. LCX: LCX was coming off the left main. Ostial LCX had up to 90% disease. OM1 had 80% lesion. Distal LCX of 95% focal lesion. RCA: RCA was coming off the right sinus of Valsalva. It was a dominant vessel. Proximal/mid/distal RCA had minor luminal irregularities. RPDA had 70% ostial lesion. There was some minor collateral from [id number]. Presentation: Patient is a 69-year-old female who was transferred from another facility ([facility]) because of chest pain and abnormal troponin. She originally presented to the other facility with chest pain and palpitations. Her troponin was somehow elevated and with diagnosis of non-STEMI the patient was transferred to our facility. Past medical history includes diabetes mellitus, hypertension, hyperlipidemia, neuropathy and status post hysterectomy/bilateral oophorectomy. Echocardiogram was performed which revealed preserved systolic function[place] [id number]. Patient was sent for cardiac catheterization. Procedure: After obtaining informed consent, the patient was brought to the laboratory operations coordinator. She was prepped and draped in sterile fashion. Right radial artery was used for access site. 1 mg of Versed and 50 mcg of fentanyl were used for moderate sedation. Using modified Seldinger technique, the right radial artery was accessed and a 6 Emirati slender sheath was inserted into it. A 5 Emirati tiger 4 catheter was used to perform left heart catheterization (obtaining press ures and performing left ventriculography) and right coronary angiography. A 3.5 JL guiding catheter was used to perform left coronary angiography. We did recognize the multivessel coronary artery disease. Patient was hemodynamically stable. She was without any chest pain. Decision was made to send her for evaluation/treatment by bypass surgery. She was continued on heparin drip after the procedure. There was no dissection/hematoma/perforation. Patient tolerated the procedure with no complication. Right radial artery access site was managed by deploying a TR band. Fluoroscopy time: 4 minutes, 35 seconds contrast: 65 mL of DOMINIC Kincaid MD Feb 12, 2025 10:29
--- NOTE | 2025-02-12 10:36 | DVHPN2 ---
Progress Note - Dictate Date Seen: Feb 12, 2025 Medical Necessity Reason Pt with a Central, PICC or Fol: No vital signs Vital Sign Date Time Temp Pulse Resp B/P (MAP) Pulse Ox O2 Delivery O2 Flow Rate FiO2 02/12/25 09:00 98.1 84 16 145/58 (87) 100 98.1 02/11/25 20:00 Room Air* 0 21 Total Intake and Output 02/11/25 02/11/25 02/12/25 15:00 23:00 07:00 Intake Total 475 ml 1000 ml Balance 475 ml 1000 ml medications Current Medications Medications Dose Ordered Sig/Mary Route Start Time Stop Time Status Last Admin Dose Admin Acetaminophen 325 mg Q4HP PRN PO 02/11/25 01:15 Acetaminophen/ Hydrocodone Bitart 1 tab Q4HP PRN PO 02/11/25 01:15 Ondansetron HCl 4 mg Q4HP PRN IV 02/11/25 01:15 Docusate Sodium 100 mg BIDPRN PRN PO 02/11/25 01:15 Morphine Sulfate 2 mg Q4HPRN PRN IV 02/11/25 01:15 Cancel Nitroglycerin 0.4 mg Q5MINP PRN SL 02/11/25 01:15 Morphine Sulfate 2 mg Q30M PRN IV 02/11/25 01:15 Cancel Atorvastatin Calcium 40 mg HS PO 02/11/25 22:00 02/11/25 20:56 40 MG Aspirin 81 mg DAILY PO 02/11/25 10:00 02/11/25 10:00 81 MG Amiodarone HCl 200 mg HS PO 02/11/25 22:00 02/11/25 20:56 200 MG Metoprolol Succinate 12.5 mg DAILY PO 02/12/25 10:00 Pantoprazole Sodium 40 mg DAILY@0600 PO 02/12/25 06:00 02/12/25 05:24 40 MG Morphine Sulfate 2 mg Q4HPRN PRN IV 02/11/25 14:45 Morphine Sulfate 2 mg Q30M PRN IV 02/11/25 14:45 Heparin Sodium/ Dextrose 250 ml @ 9 mls/hr Q24H IV 02/12/25 04:55 02/12/25 05:08 9 MLS/HR laboratory and microbiology Laboratory Tests 02/12/25 02:48 Test 02/12/25 02:48 Range/Units Serum Glucose 321 H 74-106 mg/dL Assessment/Plan This is a 69-year old female known outside to our practice who had initially presented to [facility] 02/10/2025 with reported chest discomfort (now resolved), shortness of breath, and palpitations. ED events from [facility] were reviewed which records indicate initial 12-lead electrocardiogram had revealed atrial fibrillation with a ventricular rate of 145 bpm, with evidence for ST depression predominately involving the septal, anterior, and lateral leads without evidence for ST segment elevation which patient was reportedly administered one dose of IV Lopressor resulting and had later converted to sinus rhythm. Initial troponin at that time had been found normal at 0.02 however repeat level had risen to 2.44 for which patient was subsequently initiated on therapeutic Lovenox and transferred to this facility for further evaluation to undergo ischemic workup. During present course of admission, serial EKG's have been found consistent with sinus rhythm with no further evidence for previously observed ST depression, nor evidence for ST segment elevation. Initial HS troponin level was found elevated at 15,359, with a subsequent trend of 16,904, which had peaked at 17,105 with a downtrend of 8207 consistent with NSTEMI for which the patient had been initiated on Heparin infusion. Subsequent CTA of the Chest had ruled out pulmonary embolism, aneurysm, and dissection. BNP level was found to be 101.76 which chest imaging had revealed no evidence for acute cardiopulmonary abnormalities. LDL was found sub-optimal at 130. Of note, previous Cardiolite Stress Test ([facility] 10/06/2024) had revealed a small area of mildly reduced radiotracer uptake in the distal anterior wall questioned to be ischemia versus attenuation, overall reported to be a low-risk study which subsequent CTA of the Coronaries had been requested for further evaluation however had not been completed by the patient. Echocardiogram (out-patient 11/07/2024) had revealed a preserved LVEF of 60-65%. At present, patient herself denies any active chest pain. Denies any further shortness of breath or palpitations. Denies any further cardiac related symptoms. As the patient presented with NSTEMI, Cardiology services were involved by primary team request for cardiac aspects of care. Past medical history includes diabetes mellitus II, hypertension, hyperlipidemia, neuropathy, status post hysterectomy and bilateral oophorectomy Cardiolite Stress Test: (10/06/2024) revealed Small area of mildly reduced radiotracer uptake in the distal anterior wall which could be secondary to ischemia versus attenuation artifact. Normal left ventricular systolic function. Overall, the study is low risk. Echocardiogram: (out-patient 11/07/2024) revealed a preserved LVEF of 60-65%, mild concentric LVH, mild left atrial dilation, mild MR, thickened MV with nodular degeneration, mild MAC, trace/mild KS, mild AR, mildly thickened AV, mild TR, with an RVSP of < 35mmHg Echocardiogram revealed: Left ventricle: Concentric left ventricle hypertrophy was seen. LVEF was around 55%. There was no gross wall motion abnormality. Abnormal relaxation of left ventricular diastolic function was observed. Right ventricle was mildly dilated with preserved systolic function. Both atria were mildly dilated. Aortic valve: Aortic valve was trileaflet. There was mild aortic insufficiency. There was mild mitral/tricuspid regurgitation. Pulmonary valve was not well visualized. Right ventricular systolic pressure was assessed at 33 mm Hg. There was no pericardial effusion. Cardiac catheterization was performed which revealed multivessel coronary artery disease, including: Distal Left main, proximal LAD, ostial LCX and also ostial RPDA. Suggestion was for transferred to high level of care for bypass surgery NSTEMI (HS Troponins 15,359 - 16,904 - 17,105 - 8207), rule out obstructive coronary artery disease Multivessel coronary artery disease, including distal left main, ostial LCX, proximal LAD Paroxysmal atrial fibrillation (new onset), currently sinus rhythm Coronary artery calcification as per CTA Chest findings Mediastinal lymphadenopathy 1.4 cm left thyroid nodule Hyperlipidemia, LDL of 130 Hypertension, controlled Diabetes mellitus II CARDIAC SUGGESTIONS FOR MANAGEMENT: Heparin drip Aspirin Follow-up electrolytes and kidney function tests and correct abnormalities. Keep potassium above 4 and magnesium above 2 Transfer to high level of care for bypass surgery Recognizing co-morbidities, CHADSVASc score is elevated, long-term full anticoagulation is advised (4 now on heparin drip) High potency statin Evaluation and management of diabetes mellitus as per primary team Proceed with close rate and rhythm surveillance Proceed with close hemodynamic surveillance Proceed with optimized blood pressure control Transfuse to sustain HGB level above 7.0 Sustain Magnesium level greater than 2.0 Sustain Potassium level greater than 4.0 Follow up renal function and electrolytes Evaluation/management of mediastinal lymphadenopathy as per primary team Evaluation/management of 1.4cm left thyroid nodule as per primary team Management of co-morbidities as per primary team Management in telemetry Further recommendations per clinical progression Plan of care discussed with and agreed upon by patient / primary RN Prognosis: Guarded Thank you for allowing me to participate in the care of this patient. Further recommendations based on patients clinical course and progression, primary attending, and other consultants. Will continue to follow with primary attending. If you have any questions or concerns, please do not hesitate to contact me. A total of 55 minutes was spent reviewing the patient record, examining the patient, making a diagnostic and therapeutic plan, discussing this plan with medical personnel, following up on diagnostic studies and following the patient for clinical stability excluding any and all procedures. At least 50% of this time was spent in direct, [id number] contact. Plan discussed with: Patient, Other (nurse) DOMINIC FLORES MD Feb 12, 2025 10:36
--- NOTE | 2025-02-12 10:50 | DVHPN2 ---
Progress Note - Dictate Date Seen: Feb 12, 2025 Medical Necessity Reason Pt with a Central, PICC or Fol: No vital signs Vital Sign Date Time Temp Pulse Resp B/P (MAP) Pulse Ox O2 Delivery O2 Flow Rate FiO2 02/12/25 09:00 98.1 84 16 145/58 (87) 100 98.1 02/11/25 20:00 Room Air* 0 21 Total Intake and Output 02/11/25 02/11/25 02/12/25 15:00 23:00 07:00 Intake Total 475 ml 1000 ml Balance 475 ml 1000 ml medications Current Medications Medications Dose Ordered Sig/Mary Route Start Time Stop Time Status Last Admin Dose Admin Acetaminophen 325 mg Q4HP PRN PO 02/11/25 01:15 Acetaminophen/ Hydrocodone Bitart 1 tab Q4HP PRN PO 02/11/25 01:15 Ondansetron HCl 4 mg Q4HP PRN IV 02/11/25 01:15 Docusate Sodium 100 mg BIDPRN PRN PO 02/11/25 01:15 Morphine Sulfate 2 mg Q4HPRN PRN IV 02/11/25 01:15 Cancel Nitroglycerin 0.4 mg Q5MINP PRN SL 02/11/25 01:15 Morphine Sulfate 2 mg Q30M PRN IV 02/11/25 01:15 Cancel Atorvastatin Calcium 40 mg HS PO 02/11/25 22:00 02/11/25 20:56 40 MG Aspirin 81 mg DAILY PO 02/11/25 10:00 02/11/25 10:00 81 MG Amiodarone HCl 200 mg HS PO 02/11/25 22:00 02/11/25 20:56 200 MG Metoprolol Succinate 12.5 mg DAILY PO 02/12/25 10:00 Pantoprazole Sodium 40 mg DAILY@0600 PO 02/12/25 06:00 02/12/25 05:24 40 MG Morphine Sulfate 2 mg Q4HPRN PRN IV 02/11/25 14:45 Morphine Sulfate 2 mg Q30M PRN IV 02/11/25 14:45 Heparin Sodium/ Dextrose 250 ml @ 9 mls/hr Q24H IV 02/12/25 04:55 02/12/25 05:08 9 MLS/HR objective General Appearance: alert, no distress HEENT: EOMI, PERRLA, normal external inspect of ears, no icterus, no nasal drainage Neck: no carotid bruit, no jugular venous distention (JVD), no lymphadenopathy Chest: normal thorax Respiratory: clear to auscultation, normal air movement Cardiovascular: regular rate and rhythm, no diastolic murmur, no jugular venous distention (JVD), no rub, no systolic murmur Abdominal: soft, no hepatomegaly, no mass, no splenomegaly, no tenderness Genitourinary: grossly normal external Musculoskeletal: no joint tenderness, no swelling Extremities: normal pulses, no calf tenderness, no clubbing, no cyanosis, no edema Skin: no bruising, no jaundice, no rash Neurological: alert, No focal deficit laboratory and microbiology Laboratory Tests 02/12/25 02:48 Test 02/12/25 02:48 Range/Units Serum Glucose 321 H 74-106 mg/dL Problem List 1. NSTEMI Heparin, cardiology consult, plan for angiogram 2. HLD Echocardiogram, lipid panel 3. Mediastinal lymphadenopathy Pulmonary consult, monitoring 4. Thyroid nodule Thyroid ultrasound Assessment/Plan Subjective: Patient was not in room during assessment. Objective: Patient was taken down for angiogram. Patient was found to have small multivessel disease in need of open heart surgery. Patient will need higher level of care. Patient was admitted for NSTEMI. Patient has no other prior medical history. Patient does report some constipation and diabetes. Plan: Continue plan of care. Patient will transfer to higher level of care for open heart surgery. Monitor daily labs. Plan discussed with: Patient, Other MARISOL LEMON NP Feb 12, 2025 10:50
[2025-02-12] MEDS: METOPROLOL SUCCINATE XL 50 MG TAB PO SCH (11:27)
[2025-02-12 11:48] LABS: INR 0.99 (0.9-1.15); Prothrombin Time 10.5 sec (9.3-11.8)
[2025-02-12] MEDS ORDERED: DEXTROSE (50%) 50ML SYRG IV PRN (16:45)
[2025-02-12] MEDS: ACCU-CHEK COMFORT CURVE STRIP VI SCH (17:04)
[2025-02-12] MEDS: InsuLIN REG 1unit/0.01ml Soln (100units/ml) SC SCH ×2 (17:11→22:55)
[2025-02-12 17:18] LABS: INR 1.01 (0.9-1.15); Partial Thromboplastin Time 65.9 SEC (24.5-34.5); Prothrombin Time 10.7 sec (9.3-11.8)
[2025-02-12] MEDS ORDERED: SENNA 8.6 MG TAB PO PRN (18:00)
--- NOTE | 2025-02-12 20:44 | DVHINCON2 ---
Date of service: Feb 12, 2025 Referring Physician Elver Michael MD Reason for Consultation Acute hypoxic respiratory failure History of Present Illness Patient is a 69-year-old woman with past medical history that includes hypertension, hyperlipidemia and DM type 2 who presented to ED on 02/11/25 with c/o chest pain. Patient reported experiencing chest pain and palpitations along with shortness of breath earlier on day of presentation. Of note, patient was found to have A-fib with RVR in the emergency department at [facility]. Patient was admitted for further care, and pulmonary consultation is requested for evaluation and management of acute hypoxic respiratory failure. Review of Systems: 14-point review of systems negative unless otherwise noted above. Past Medical History: Includes diabetes mellitus type II, hypertension, hyperlipidemia, neuropathy Past Surgical History: status post hysterectomy and bilateral oophorectomy Medications: Reviewed. Allergies: No known drug allergies. Family History: DM and hypertension. Social History: Nonsmoker. No alcohol or illicit drug use. Family History: Diabetes mellitus G8 MOTHER Hypertension G8 MOTHER Allergies: Coded Allergies: NO KNOWN ALLERGIES (Unverified , 10/06/24) Home Meds Reported Medications Omeprazole (Gnp Omeprazole) 20 Mg Tab, 40 MG PO DAILY, TAB 02/11/25 Phenazopyridine HCl (Phenazopyridine Hydrochol) 200 Mg Tab, 1 TAB PO TID 02/11/25 Nitrofurantoin Monohyd Macro (Nitrofurantoin Monohydrat) 100 Mg Cap, 1 CAP PO 02/11/25 Insulin Aspart (Novolog) 100 Unit/Ml Inj, SC 02/11/25 Gabapentin (Gabapentin) 300 Mg Cap, 1 CAP PO TID 02/11/25 Amlodipine Besylate (Amlodipine Besylate) 5 Mg Tab, 1 TAB PO DAILY 02/11/25 Atorvastatin Calcium (ATORVASTATIN CALCIUM) 80 Mg Tab, 1 TAB PO DAILY 02/11/25 Atorvastatin Calcium (ATORVASTATIN CALCIUM) 20 Mg Tab, 1 TAB PO DAILY 02/11/25 Metoprolol Tartrate (Lopressor) 25 Mg Tb, 1 TAB PO BID 02/11/25 Aspirin (Aspirin Low Dose) 81 Mg Chw, 1 TAB PO DAILY 02/11/25 Metformin Hydrochloride (Metformin Hcl) 500 Mg Tab, 1 TAB PO BID 02/11/25 Current Medications Current Medications Medications (Trade) Dose Ordered Sig/Mary Route PRN Reason Start Time Stop Time Status Last Admin Atorvastatin Calcium (Lipitor) 40 mg HS PO 02/11/25 22:00 02/11/25 20:56 Amiodarone HCl (Cordarone Tablet) 200 mg HS PO 02/11/25 22:00 02/11/25 20:56 Metoprolol Succinate (Toprol Xl) 12.5 mg DAILY PO 02/12/25 10:00 02/12/25 11:27 Pantoprazole Sodium (Protonix Tablet) 40 mg DAILY@0600 PO 02/12/25 06:00 02/12/25 05:24 Heparin Sodium/ Dextrose 250 ml @ 12 mls/hr [id number] IV 02/11/25 21:00 02/12/25 04:00 DC 02/11/25 20:50 Heparin Sodium/ Dextrose 250 ml @ 9 mls/hr Q24H IV 02/12/25 04:55 02/12/25 05:08 Diagnostic Test (Pha) (Accu-Chek Comfort Curve T) 1 strip ACHS 02/12/25 17:00 02/12/25 17:04 Insulin Human Regular (InsuLIN R) HS SC 02/12/25 22:00 Insulin Human Regular (InsuLIN R) AC SC 02/12/25 17:00 02/12/25 17:11 Dextrose 50 ml UD PRN IV Blood Sugar LESS THAN 60 02/12/25 16:45 Sennosides (Senokot Tablet) 8.6 mg QHSP PRN PO FOR CONSTIPATION 02/12/25 18:00 Polyethylene Glycol (Miralax 17GM Powder) 17 gm DAILY PO 02/13/25 10:00 Vital Signs Vital Signs Date Time Temp Pulse Resp B/P (MAP) Pulse Ox O2 Delivery O2 Flow Rate FiO2 02/12/25 16:37 96.8 72 17 153/88 (109) 96 96.8 02/12/25 08:00 Room Air* 0 21 Physical Exam Gen.: Patient lying in bed in no apparent distress. Breathing on room air. Head: Normocephalic, atraumatic. Eyes: EOMI/PERRLA. Ears: Normal hearing. Normal anatomy. Neck/trachea: Trachea midline, supple. Nose: Normal external anatomy. Mouth: Moist mucous membranes. Chest: Decreased air entry bilaterally. No wheezing or rhonchi. Cardiovascular: Positive S1, positive S2. Regular rate and rhythm. Abdomen: Positive bowel sounds in all 4 quadrants. Soft, non-tender, non- distended. : Deferred. Rectal: Deferred. Skin: Warm, dry. Intact. Extremities: 2+ radial pulses bilaterally. No lower extremity edema. Neuro: Awake, alert, oriented x3. No gross motor or sensory deficits. Cranial nerves II through XII intact. Gait not assessed. Labs/Diagnostic Data Labs Test 02/12/25 16:51 02/12/25 16:15 02/12/25 02:48 02/11/25 12:38 Range/Units Prothrombin Time 10.7 9.3-11.8 sec Prothrombin Time INR 1.01 0.9-1.15 Activated Partial Thromboplast Time 65.9 H 24.5-34.5 SEC POC Glucose 331 H 70-106 mg/dl White Blood Count 8.4 4.4-10.8 10^3/uL Red Blood Count 4.48 4.0-5.20 10^6/uL Hemoglobin 13.3 12.2-16.2 g/dL Hematocrit 38.8 36.0-46.0 % Mean Corpuscular Volume 86.4 80.0-100.0 fL Mean Corpuscular Hemoglobin 29.7 28.0-32.0 pg Mean Corpuscular Hemoglobin Concent 34.4 32.0-36.0 g/dL Red Cell Distribution Width 13.2 11.8-14.3 % Platelet Count 212 140-450 10^3/uL Mean Platelet Volume 10.6 6.9-10.8 fL Neutrophils (%) (Auto) 58.6 37.0-80.0 % Lymphocytes (%) (Auto) 30.1 10.0-50.0 % Monocytes (%) (Auto) 9.0 0.0-12.0 % Eosinophils (%) (Auto) 1.2 0.0-7.0 % Basophils (%) (Auto) 1.1 0.0-2.0 % Neutrophils # (Auto) 4.9 1.6-8.6 10 ^3/uL Lymphocytes # (Auto) 2.5 0.4-5.4 10 ^3/uL Monocytes # (Auto) 0.8 0-1.3 10 ^3/uL Eosinophils # (Auto) 0.1 0-0.8 10 ^3/uL Basophils # (Auto) 0.1 0-0.2 10 ^3/uL Nucleated Red Blood Cells 0.1 % Sodium Level 137 # 136-145 mmol/L Potassium Level 4.2 3.5-5.1 mmol/L Chloride Level 102 98-107 mmol/L Carbon Dioxide Level 27 20-31 mmol/L Anion Gap 8 5-15 Blood Urea Nitrogen 16 9-23 mg/dL Creatinine 0.97 0.550-1.02 mg/dL Glomerular Filtration Rate Calc 63 >90 mL/min BUN/Creatinine Ratio 16.5 10.0-20.0 Serum Glucose 321 H 74-106 mg/dL Calcium Level 9.5 8.7-10.4 mg/dL Magnesium Level 1.9 1.6-2.6 mg/dL Total Bilirubin 0.8 0.2-1.0 mg/dL Aspartate Amino Transferase (AST) 54 H 13-40 U/L Alanine Aminotransferase (ALT) 28 7-40 U/L Alkaline Phosphatase 103 46-116 U/L Total Protein 7.5 5.7-8.2 g/dL Albumin 4.6 3.2-4.8 g/dL Free Thyroxine (T4) Calculated 1.14 0.89-1.76 ng/dL Test 02/11/25 12:36 02/11/25 02:58 02/10/25 18:34 Range/Units Troponin I High Sensitivity 8207 *H </=34 ng/L Carcinoembryonic Antigen 1.83 <=5.0 ng/mL Thyroid Stimulating Hormone (TSH) 1.79 0.55-4.78 uIU/mL Triglycerides Level 119 < 150 mg/dL Cholesterol Level 206 H < 200 mg/dL LDL Cholesterol 130 H < 100 mg/dL HDL Cholesterol 59 40-59 mg/dL B-Type Natriuretic Peptide 101.76 0-100 pg/mL Assessment Impression: Acute hypoxic respiratory failure Non-ST elevation myocardial infarction Mediastinal lymphadenopathy Hyperglycemia Plan: Supplemental oxygen PRN Titrate to keep O2 sats above 92%. CT angio on 02/11/25 reviewed: No evidence of pulmonary embolism. Mediastinal lymphadenopathy. Coronary artery calcification. A 1.4 cm left thyroid nodule. Amiodarone PO. Incentive spirometry Accu-Cheks Heparin drip for DVT prophylaxis Protonix for GI prophylaxis Thyroid nodule - TSH is wnl. Cold nodule - see outpatient FNA. Monitor renal function. Monitor electrolytes. Supplement as necessary. Monitor ins and outs. GI/DVT prophylaxis. Prognosis: Poor given patient's multiple co-morbidities. Rest of plan per hospitalist and other consultants. Thank you Dr. Michael, for allowing me to participate in this patient's care. Further recommendations will depend on the patient's clinical course. Please do not hesitate to contact me if you have any questions or concerns. This medical document was created using an electronic medical record system with [employer] dictation system. Although these documentations are being carefully reviewed, there may still be some phonetic and typographical changes. The errors are purely typographical, due to imperfection on the software program, and do not reflect any compromise in the patient's medical care. Plan discussed with: Patient, Other (JM Kaye/Dr. Michael) LINDY SOLIZ MD Feb 12, 2025 20:44
[2025-02-12 23:35] LABS: Prothrombin Time 10.6 sec (9.3-11.8)
[2025-02-12 23:39] LABS: Partial Thromboplastin Time 76.4 SEC (24.5-34.5)
[2025-02-13] MEDS: HEPARIN DRIP/D5W 100UNITS/ML 250 ML IV SCH (00:05)
[2025-02-13 04:48] VITALS: BP 144/67; PULSE 75; RESP 17; TEMP 98.2; O2SAT 99
[2025-02-13] MEDS ORDERED: POLYETHYLENE GLYCOL 17 GM PWDR PO SCH (10:00)
--- NOTE | 2025-02-13 21:39 | DVHDS2 ---
Discharge Summary Date of Admission Feb 11, 2025 at 01:01 Date of Discharge: Feb 13, 2025 Labs/Diagnostic Data: Laboratory Results Test 02/13/25 05:47 02/12/25 22:59 02/12/25 02:48 02/11/25 12:38 POC Glucose 157 mg/dl (70-106) Prothrombin Time 10.6 sec (9.3-11.8) Prothrombin Time INR 1.00 (0.9-1.15) Activated Partial Thromboplast Time 76.4 SEC (24.5-34.5) White Blood Count 8.4 10^3/uL (4.4-10.8) Red Blood Count 4.48 10^6/uL (4.0-5.20) Hemoglobin 13.3 g/dL (12.2-16.2) Hematocrit 38.8 % (36.0-46.0) Mean Corpuscular Volume 86.4 fL (80.0-100.0) Mean Corpuscular Hemoglobin 29.7 pg (28.0-32.0) Mean Corpuscular Hemoglobin Concent 34.4 g/dL (32.0-36.0) Red Cell Distribution Width 13.2 % (11.8-14.3) Platelet Count 212 10^3/uL (140-450) Mean Platelet Volume 10.6 fL (6.9-10.8) Neutrophils (%) (Auto) 58.6 % (37.0-80.0) Lymphocytes (%) (Auto) 30.1 % (10.0-50.0) Monocytes (%) (Auto) 9.0 % (0.0-12.0) Eosinophils (%) (Auto) 1.2 % (0.0-7.0) Basophils (%) (Auto) 1.1 % (0.0-2.0) Neutrophils # (Auto) 4.9 10 ^3/uL (1.6-8.6) Lymphocytes # (Auto) 2.5 10 ^3/uL (0.4-5.4) Monocytes # (Auto) 0.8 10 ^3/uL (0-1.3) Eosinophils # (Auto) 0.1 10 ^3/uL (0-0.8) Basophils # (Auto) 0.1 10 ^3/uL (0-0.2) Nucleated Red Blood Cells 0.1 % Sodium Level 137 mmol/L (136-145) Potassium Level 4.2 mmol/L (3.5-5.1) Chloride Level 102 mmol/L (98-107) Carbon Dioxide Level 27 mmol/L (20-31) Anion Gap 8 (5-15) Blood Urea Nitrogen 16 mg/dL (9-23) Creatinine 0.97 mg/dL (0.550-1.02) Glomerular Filtration Rate Calc 63 mL/min (>90) BUN/Creatinine Ratio 16.5 (10.0-20.0) Serum Glucose 321 mg/dL (74-106) Calcium Level 9.5 mg/dL (8.7-10.4) Magnesium Level 1.9 mg/dL (1.6-2.6) Total Bilirubin 0.8 mg/dL (0.2-1.0) Aspartate Amino Transferase (AST) 54 U/L (13-40) Alanine Aminotransferase (ALT) 28 U/L (7-40) Alkaline Phosphatase 103 U/L (46-116) Total Protein 7.5 g/dL (5.7-8.2) Albumin 4.6 g/dL (3.2-4.8) Free Thyroxine (T4) Calculated 1.14 ng/dL (0.89-1.76) Test 02/11/25 12:36 02/11/25 02:58 02/10/25 18:34 Troponin I High Sensitivity 8207 ng/L (</=34) Carcinoembryonic Antigen 1.83 ng/mL (<=5.0) Thyroid Stimulating Hormone (TSH) 1.79 uIU/mL (0.55-4.78) Triglycerides Level 119 mg/dL (< 150) Cholesterol Level 206 mg/dL (< 200) LDL Cholesterol 130 mg/dL (< 100) HDL Cholesterol 59 mg/dL (40-59) B-Type Natriuretic Peptide 101.76 pg/mL (0-100) Other Laboratory Tests 02/12/25 02:48 Brief Hx & Hospital Course: Patient is a 69-year-old female coming in for chest pain. Patient states that she was experiencing chest pain and palpitations and shortness of breath earlier today. Patient was found to have A-fib with RVR in the emergency department at [facility]. Patient states that she does have a history of hypertension and diabetes. While in the emergency department the patient was evaluated by the provider, As per provider: Labs, vital signs, and imagining monitored. Patient was admitted on 02/11/2025 for A-fib with RVR. Patient had symptoms of shortness of breath. Patient was found to be in NSTEMI. Patient has underlying history of diabetes type 2. Patient was seen by cardiology. Patient was taken to [facility]. Patient was found to have small vessel disease. CT imaging also showed lymphadenopathy and mediastinal lymphadenopathy. Patient states she has not had any infectious process. Patient also had a thyroid nodule and patient is to follow-up with ultrasound in 1 year. I did give a peer to peer to [facility]. I did inform them that Ca-125 is pending. CEA level is normal. Patient will need outpatient follow-up for mediastinal lymphadenopathy. Patient was transferred to [facility] for even for open heart surgery for small vessel disease. The patient received proper medical treatment and medications. Vital signs, Imaging and Laboratory Work was monitored daily. All consults recommendations were followed as provided. There were no complaints or new complaints upon discharge, all questions and concerns were answered. Patient was advised to return to the ER or call 911 if any headaches, dizziness, shortness of breath, chest pain, bleeding, fevers, or worsening of medical condition. Patient/Family was counseled about treatment plan, medications, possible side effects, patient verbalized understanding. All questions were answered to the best of my ability. The patient symptoms improved and they are okay to be DC. Condition at Discharge: Good Final Diagnosis/Problems List Small vessel disease- need evaluation for CABG Atrial fibrillation Nstemi Mediastinal lymph adenopathy Thyroid nodule Secondary Diagnosis: NSTEMI HLD Mediastinal lymphadenopathy Thyroid nodule Discharge Disposition: Acute Care Facility Discharge Instruct/Medications Diet: Consistent carbohydrate, Cardiac 2g Na,low cholest Activity: No Restrictions, As Tolerated Medications: Continue Discharge Statement: "Patient was advised to return to the ER or call 911 if any headaches, dizziness, shortness of breath, chest pain, abdominal pain, bleeding, fevers, or worsening of medical condition. Patient was counseled about treatment plan, medications, possible side effects, patientverbalized understanding. All questions were answered to the best of my ability. This discharge took greater then 30 minutes in planning, reviewing documentation, counseling the patient, and discussing with other team members." ASSESSMENT ASSESSMENT Assessment Small vessel disease- need evaluation for CABG Atrial fibrillation Nstemi Mediastinal lymph adenopathy Thyroid nodule MARISOL [facility]ON [facility] Feb 13, 2025 21:39
== END 2025-02-13 05:30 | disposition short-term general hospital (02) | DRG 190 ==
LOC: EDBD 17:15 → ER 17:22 → OVERFLOW 02-11 01:01 → TELE-EAST 02-11 03:02
PROVIDERS: ADMIT Internal Medicine; ATTEND Internal Medicine
PROC: B211YZZ Fluoroscopy of Multiple Coronary Arteries using Other Contrast (ICD-10-PCS; principal; 2025-02-12)
PROC: B215YZZ Fluoroscopy of Left Heart using Other Contrast (ICD-10-PCS; 2025-02-12)
PROC: 4A023N7 Measurement of Cardiac Sampling and Pressure, Left Heart, Percutaneous Approach (ICD-10-PCS; 2025-02-12)
DX: I21.4 Non-ST elevation (NSTEMI) myocardial infarction (principal); E11.40 Type 2 diabetes mellitus with diabetic neuropathy, unspecified; E11.65 Type 2 diabetes mellitus with hyperglycemia; E04.1 Nontoxic single thyroid nodule; I48.0 Paroxysmal atrial fibrillation; I10 Essential (primary) hypertension; I25.10 Atherosclerotic heart disease of native coronary artery without angina pectoris; R59.0 Localized enlarged lymph nodes; E78.5 Hyperlipidemia, unspecified; Z82.49 Family history of ischemic heart disease and other diseases of the circulatory system; Z79.4 Long term (current) use of insulin; Z79.899 Other long term (current) drug therapy; Z79.82 Long term (current) use of aspirin; Z79.84 Long term (current) use of oral hypoglycemic drugs; Z83.3 Family history of diabetes mellitus; Z90.710 Acquired absence of both cervix and uterus
CPT/HCPCS: 36415; 71045; 71275; 76536; 80048; 80053; 80061; 82378; 82962; 83735; 83880; 84439; 84443; 84484; 85025; 85610; 85730; 86304; 93005; 93306; 93458; 96365; 96375; 99152; 99291; G0378; J1815; J2250; Q9967